=== PATIENT | female | born 1960 | race Caucasian/White ===

== ENCOUNTER 2017-11-01 10:10 | Outpatient (CLI) | payer OTHER ==
--- NOTE | 2017-11-05 15:05 | MMO ---
BILATERAL SCREENING MAMMOGRAM: Date: 11/01/17 COMPARISON: 12/26/16, 12/15/16, 11/09/15, 11/04/14, and 10/31/13 exams. HISTORY: Annual screening exam. This patient's mammogram was interpreted with the assistance of computer-aided detection. FINDINGS: Scattered fibroglandular changes of both breasts are seen. There is a circumscribed nodular density seen in the upper outer right breast. In the deep posterior portion of the breast, it is not seen on any of the prior exams except for the 12/15/16 exam, but is stable in appearance as compared to that study. It's very posterior depth may make it very difficult to consistently visualize. Given the stability over an approximately 1 year timeframe, I believe formerly [facility] follow-up is annual follow-up exam. IMPRESSION: BIRADS 2: Benign Finding(s) An annual follow-up examination is recommended to reassess the nodular area in the upper outer right breast. POS: MEHUL
== END 2017-11-01 10:11 | disposition home or self-care (01) ==
LOC: SCSMAMMO 10:10
PROVIDERS: ATTEND Family Medicine
DX: Z12.31 Encounter for screening mammogram for malignant neoplasm of breast (principal)
CPT/HCPCS: 77067

== ENCOUNTER 2018-05-15 03:12 | Emergency (ER) | payer BC, OTHER, SELFPAY ==
[2018-05-15 04:06] LABS: #Lymphocytes 0.5 thou/uL (1.20-3.40); #Monocytes 0.3 thou/uL (0.11-0.59); #Neutrophils 6.1 thou/uL (1.40-6.50); %Basophils 0.3 % (0.0-1.0); %Eosinophils 0.5 % (0.0-10.0); %Lymphocytes 6.9 % (21.0-51.0); %Monocytes 4.5 % (0.0-10.0); %Neutrophils 87.7 % (42.0-75.0); Hemoglobin 14.4 g/dL (12.0-16.0); Mean Corpuscular Hemoglobin 32.3 pg (27.0-31.0); Mean Corpuscular Volume 92.4 fL (78.0-98.0); Mean Platelet Volume 6.6 fL (7.4-10.4); Platelet Count 284 thou/uL (130-400); Red Blood Cell (RBC) Count 4.46 mill/uL (4.20-5.40)
[2018-05-15 04:20] LABS: Bilirubin Negative (Negative); Blood, Urine Negative (Negative); Clarity CLOUDY (Clear); Glucose, Urine (Dipstick) Negative (Negative); Leukocyte Negative (Negative); Nitrite Negative (Negative); Protein, Urine (Dipstick) Negative (Neg-Trace); Specific Gravity, Urine 1.008 (1.002-1.036)
[2018-05-15 04:26] LABS: ALT (SGPT) 20 U/L (8-55); AST (SGOT) 23 U/L (5-34); Alkaline Phosphatase 73 U/L (40-150); Anion Gap 12 mmol/L (10-20); BUN (Urea Nitrogen) 16 mg/dL (9.8-20.1); Bilirubin, Total 1.4 mg/dL (0.2-1.2); Calc. Creatinine Clearance 0 mL/min (70-130); Calcium 8.7 mg/dL (7.8-10.44); Carbon Dioxide 24 mmol/L (22-29); Chloride 107 mmol/L (98-107); Estimated GFR-MDRD 81; Globulin 2.4 g/dL (2.4-3.5); Glucose 107 mg/dL (70-105); Lipase 44 U/L (8-78); Potassium 3.8 mmol/L (3.5-5.1); Protein, Total 6.4 g/dL (6.0-8.3); Sodium 139 mmol/L (136-145)
[2018-05-15] MEDS ORDERED: Morphine 4 MG/ML VIAL ONE (04:56)
[2018-05-15] MEDS ORDERED: Ondansetron PF 4 MG/2 ML Vial ONE (04:57)
--- NOTE | 2018-05-15 08:30 | ULT ---
RIGHT UPPER QUADRANT ULTRASOUND: INDICATION: History of epigastric abdominal pain that radiates to the back with nausea and vomiting. FINDINGS: No focal hepatic lesion is evident. The gallbladder is mildly distended with a small amount of layered sludge within the neck. No gallbl adder wall thickening or sonographic Quan's sign is reported. Common bile duct measures 2. Mm. The pancreas is largely obscured due to overlying bowel gas. The right kidney measures 2.8 x 4.2 x 4.1 cm. No focal renal region or hydronephrosis is evident. IMPRESSION: Mild gallbladder sludge without sonographic evident of acute cholecystitis. POS: BH
--- NOTE | 2018-05-15 09:08 | CT ---
CT OF THE ABDOMEN AND PELVIS WITH IV CONTRAST: INDICATION: History of abdominal pain. COMPARISON: Right upper quadrant ultrasound dated 05/15/2018. FINDINGS: There is bibasilar atelectasis. The gallbladder is mildly distended. The liver, pancreas, adrenal glands, spleen, and kidneys appear within normal limits. No free fluid or enlarged lymph nodes are evident. There is a mild amount of retained stool within the colon. There is a normal appendix in the right l ower quadrant of the abdomen. The bladder, rectum, and perirectal soft tissues are unremarkable-appe aring. No definite acute osseous abnormality is evident. There is mild gas fluid and food distention of the stomach. IMPRESSION: 1. Mild to moderate distention of the stomach. This is nonspecific and may be related to mild gastr oparesis. 2. Mild gallbladder distention is nonspecific. 3. Mild amount of retained stool within the colon. POS: BH
== END 2018-05-15 07:15 | disposition home or self-care (01) ==
LOC: ERS 03:12
DX: K83.8 Other specified diseases of biliary tract (principal); E78.5 Hyperlipidemia, unspecified; I10 Essential (primary) hypertension; Z79.899 Other long term (current) drug therapy
CPT/HCPCS: 36415; 74177; 76705; 80053; 81003; 83605; 83690; 85025; 93005; 96361; 96374; 96375; J2270; J2405

== ENCOUNTER 2025-01-22 10:11 | Outpatient (CLI) | payer MEDICARE | END 2025-01-22 10:12 | disposition home or self-care (01) | LOC: SCSBT 10:11 | PROVIDERS: ATTEND Family Medicine | DX: Z78.0 Asymptomatic menopausal state (principal); M85.89 Other specified disorders of bone density and structure, multiple sites | CPT/HCPCS: 77080 ==

== ENCOUNTER 2025-01-29 08:42 | Outpatient (CLI) | payer MEDICARE | END 2025-01-29 08:43 | disposition home or self-care (01) | LOC: SCSMRI 08:42 | PROVIDERS: ATTEND Physician Assistant | DX: M54.2 Cervicalgia (principal); M48.02 Spinal stenosis, cervical region | CPT/HCPCS: 72141 ==